=== PATIENT | female | born 1970 | race Caucasian/White ===

== ENCOUNTER 2020-08-02 10:57 | Observation (INO) ==
[~2020-08-02 10:57] MED LIST: ATIVAN INJ 2 MG VIAL IVP ONE; ATIVAN INJ 2 MG VIAL ONE; NS 1000 ML 1,000 ML ONE
--- NOTE | 2020-08-02 11:13 | DR.GENAD ---
HPI Time Seen Time Seen by Provider: 08/02/20 11:09 ROS Review of Systems Constitutional: Weakness Eyes: No Symptoms Reported ENTM: No Symptoms Reported Respiratoy: Short of Breath Cardiovascular: Palpitations Gastrointestinal/Abdominal: No Symptoms Reported Genitourinary: No Symptoms Reported Neurological: Emotional Problems Musculoskeletal: No Symptoms Reported Integumentary: No Symptoms Reported Hematologic/Lymphatic: No Symptoms Reported Endocrine: No Symptoms Reported Psychiatric: Anxiety and Other (panic attack) All Other Systems: Reviewed and Negative PE Vital Signs Vitals: Temperature 97.4 F Pulse Rate [Apical] 59 Pulse Rate 55 Respiratory Rate 24 Blood Pressure [Right Arm] 121/68 Blood Pressure 94/61 O2 Sat by Pulse Oximetry 99 General Limitations: No Limitations and Other (pt having a panic attack) General Appearance: Alert and Anxious Head Head Exam: Normal Inspection, Atraumatic and Normocephalic Eyes Eye exam: Normal Appearance, PERRL and EOMI ENT ENT Exam: Normal Exam, Normal Oropharynx and Mucous Membranes Moist Mouth Exam: Normal Inspection; negative Drooling, Trismus, Lip Swelling, Tongue Elevation and Tongue Swelling Throat Exam: Normal Inspection; negative Tonsillar Erythema, Tonsillomegaly, Tonsillar Exudate and R Peritonsillar Mass Neck Neck Exam: Normal Inspection, Full ROM and Trachea Midline; negative Tenderness, Meningismus and Lymphadenopathy Chest Chest Inspection: Normal Inspection and Symmetric Chest Wall Rise; negative Tenderness Respiratory Respiratory Exam: Normal Lung Sounds Bilat; negative Accessory Muscle Use and Chest Wall Tenderness Respiratory Exam: Bilateral: Clear to Auscultation Cardiovascular Cardiovascular Exam: Regular Rate, Normal Rhythm and Other (frquent added beats bigeminy ) Abdominal Exam Abdominal Exam: Normal Inspection, Normal Bowel Sounds and Soft Extremities Extremities Exam: Normal Inspection and Full ROM; negative Tenderness, Edema and Joint Swelling Back Back Exam: Normal Inspection and Full ROM; negative Tenderness Neurologic Neurological Exam: Alert, Oriented X3 and Normal Gait; negative Motor Sensory Deficit Psychiatric Psychiatric Exam: Other (pt in panic attack upon admission after 2mg of Ativan IV asymptomatic and calm ) Skin Skin Exam: Warm, Dry, Intact and Normal Color MDM Differential Diagnosis Differential Diagnosis: panic attack resp failure upper resp obstruction bradyvcardia Ac NV ROR Labs Reviewed Laboratory Results Reviewed?: Yes Result Diagrams: 08/02/20 10:55 08/02/20 10:55 Laboratory: WBC 7.8 X10^3/uL (3.6-10.0) 12/10/20 10:55 RBC 4.14 X10^6/uL (3.5-5.4) 08/02/20 10:55 Hgb 12.8 g/dL (12.0-16.0) 08/02/20 10:55 Hct 38.6 % (36.0-47.0) 08/02/20 10:55 MCV 93.2 fL (80.0-100.0) 08/02/20 10:55 MCH 30.9 pg (27.0-34.0) 08/02/20 10:55 MCHC 33.1 g/dL (33.0-35.0) 08/02/20 10:55 RDW 14.0 % (11.6-16.5) 08/02/20 10:55 Plt Count 256 X10^3/uL (150.0-450.0) 08/02/20 10:55 MPV 7.7 fL (7.4-11.0) 08/02/20 10:55 Neut % (Auto) 63.9 % (42.0-75.0) 08/02/20 10:55 Lymph % (Auto) 23.4 % (21.0-51.0) 08/02/20 10:55 [place] % (Auto) 10.9 % (0.0-13.0) 08/02/20 10:55 Eos % (Auto) 1.4 % (0.9-2.9) 08/02/20 10:55 Baso % (Auto) 0.4 % (0.2-1.0) 08/02/20 10:55 Neut # (Auto) 5.0 x10^3/uL (2.2-4.8) H 08/02/20 10:55 Lymph # (Auto) 1.8 X10^3/uL (1.3-2.9) 08/02/20 10:55 [place] # (Auto) 0.8 x10^3/uL (0.3-0.8) 08/02/20 10:55 Eos # (Auto) 0.1 x10^3/uL (0.0-0.2) 08/02/20 10:55 Baso # (Auto) 0.0 X10^3/uL (0.0-0.1) 08/02/20 10:55 Absolute Nucleated RBC 0.0 /100WBC 08/02/20 10:55 PT 12.5 SECONDS (11.8-14.3) 08/02/20 10:55 INR Target Range - 08/02/20 10:55 INR 0.96 (0.8-1.3) 08/02/20 10:55 APTT 27.9 SECONDS (22.9-36.5) 08/02/20 10:55 PTT Comment - 08/02/20 10:55 Sodium 142 mmol/L (136-145) 08/02/20 10:55 Corrected Sodium TNP 08/02/20 10:55 Potassium 4.0 mmol/L (3.5-5.1) 08/02/20 10:55 Chloride 106 mmol/L (98-107) 08/02/20 10:55 Carbon Dioxide 25.3 mmol/L (21-32) 08/02/20 10:55 BUN 15 mg/dL (7-18) 08/02/20 10:55 Creatinine 0.68 mg/dL (0.55-1.02) 08/02/20 10:55 Est GFR (MDRD) Af Amer > 60 (>60) 08/02/20 10:55 Est GFR (MDRD) Non-Af > 60 (>60) 08/02/20 10:55 Glucose 92 mg/dL (65-99) 08/02/20 10:55 Calcium 9.6 mg/dL (8.5-10.1) 08/02/20 10:55 Corrected Calcium TNP 08/02/20 10:55 Magnesium 1.9 mg/dL (1.7-2.9) 08/02/20 10:55 Total Bilirubin 0.20 mg/dL (0.2-1.0) 08/02/20 10:55 AST 19 Units/L (15-37) 08/02/20 10:55 ALT 20 Units/L (12-78) 08/02/20 10:55 Alkaline Phosphatase 23 Units/L (46-116) L 08/02/20 10:55 Creatine Kinase 100 Units/L (26-192) 08/02/20 10:55 CK-MB (CK-2) < 1.0 ng/mL (0-4.0) 08/02/20 10:55 CK/CKMB % Calc 1.0 % (<4) 08/02/20 10:55 Troponin I < 0.02 ng/mL (0-1.5) 08/02/20 10:55 Total Protein 7.1 g/dL (6.4-8.2) 08/02/20 10:55 Albumin 4.0 g/dL (3.4-5.0) 08/02/20 10:55 Globulin 3.1 g/dL (2.5-4.5) 08/02/20 10:55 Albumin/Globulin Ratio 1.3 Ratio (1.1-2.1) 08/02/20 10:55 SARS CoV-2 RNA Rapid ANTOLIN Negative (NEGATIVE) 08/02/20 11:03 XRAY XRAY Interpreted by: Radiologist X-ray Results: NAD EKG Rate: 75 [place]: LAD Rhythm: PVCs (Bigeminy) Block: None Hypertrophy: LVH ST: Normal Opioid Opioid Risk Tool Total: 0 Total Score Risk Category: Low Risk Copyright: Nilo BACA predicting aberrant behaviors Diagnosis Discharge Problem: Bradycardia, Ventricular bigeminy
[2020-08-02] MEDS ORDERED: NITROSTAT SL PRN (11:17)
[2020-08-02] MEDS ORDERED: ASPIRIN PO ONE (11:17)
[2020-08-02 11:34] LABS: BASOPHILS % (AUTO) 0.4 % (0.2-1.0); EOSINOPHILS # (AUTO) 0.1 x10^3/uL (0.0-0.2); EOSINOPHILS % (AUTO) 1.4 % (0.9-2.9); HEMATOCRIT 38.6 % (36.0-47.0); HEMOGLOBIN 12.8 g/dL (12.0-16.0); LYMPHOCYTES # (AUTO) 1.8 X10^3/uL (1.3-2.9); LYMPHOCYTES % (AUTO) 23.4 % (21.0-51.0); MEAN CORPUSCULAR HEMOGLOBIN 30.9 pg (27.0-34.0); MEAN CORPUSCULAR HGB CONC 33.1 g/dL (33.0-35.0); MEAN CORPUSCULAR VOLUME 93.2 fL (80.0-100.0); MEAN PLATELET VOLUME 7.7 fL (7.4-11.0); MONOCYTES # (AUTO) 0.8 x10^3/uL (0.3-0.8); MONOCYTES % (AUTO) 10.9 % (0.0-13.0); NEUTROPHILS % (AUTO) 63.9 % (42.0-75.0); PLATELET COUNT 256 X10^3/uL (150.0-450.0); RED BLOOD COUNT 4.14 X10^6/uL (3.5-5.4); WHITE BLOOD COUNT 7.8 X10^3/uL (3.6-10.0)
--- NOTE | 2020-08-02 11:47 | RAD ---
HISTORYCHEST PAINSTUDYCHEST, 1 VIEWCOMPARISONNoneFINDINGSThe trachea is midline. The cardiac silhouette is unremarkable . The lungs are clear without focal infiltrate or effusion. The bony thorax is unremarkable.IMPRESSIONNo acute cardiopulmonary disease.Electronically signed by: ALLY PAGAN (Aug 02, 2020 11:45:42)
[2020-08-02 11:48] LABS: ALANINE AMINOTRANSFERASE 20 Units/L (12-78); ALKALINE PHOSPHATASE 23 Units/L (46-116); ASPARTATE AMINO TRANSFERASE 19 Units/L (15-37); BLOOD UREA NITROGEN 15 mg/dL (7-18); CALCIUM 9.6 mg/dL (8.5-10.1); CHLORIDE 106 mmol/L (98-107); CREATINE KINASE 100 Units/L (26-192); CREATINE KINASE MB < 1.0 ng/mL (0-4.0); CREATININE 0.68 mg/dL (0.55-1.02); MAGNESIUM 1.9 mg/dL (1.7-2.9); SODIUM 142 mmol/L (136-145); TOTAL PROTEIN 7.1 g/dL (6.4-8.2); TROPONIN I < 0.02 ng/mL (0-1.5); eGFR NON BLACK RACES > 60 (>60)
[2020-08-02 11:53] LABS: CARBON DIOXIDE 25.3 mmol/L (21-32)
[2020-08-02] MEDS ORDERED: NS 1000 ML 1,000 ML IV SCH ×3 (11:53→13:00)
[2020-08-02 15:39] VITALS: BMI 24.5
[2020-08-02 17:52] LABS: BILIRUBIN,URINE NEGATIVE (NEGATIVE); BLOOD/HEMOGLOBIN,URINE NEGATIVE (NEGATIVE); GLUCOSE, URINE NEGATIVE (NEGATIVE); KETONES,URINE NEGATIVE (NEGATIVE); LEUKOCYTE ESTERASE ,URINE NEGATIVE (NEGATIVE); NITRITES,URINE NEGATIVE (NEGATIVE); PH,URINE 6.5 (5.0 - 8.0); PROTEIN,URINE NEGATIVE (NEGATIVE); UROBILINOGEN,URINE NORMAL (NORMAL)
[2020-08-02 18:02] LABS: APPEARANCE,URINE CLEAR (CLEAR); COLOR,URINE YELLOW (YELLOW)
[2020-08-02 18:05] LABS: CKMB % 1.3 % (<4); CREATINE KINASE 79 Units/L (26-192); CREATINE KINASE MB < 1.0 ng/mL (0-4.0); TROPONIN I < 0.02 ng/mL (0-1.5)
[2020-08-02 23:53] LABS: CKMB % 1.4 % (<4); CREATINE KINASE 70 Units/L (26-192); CREATINE KINASE MB < 1.0 ng/mL (0-4.0); TROPONIN I < 0.02 ng/mL (0-1.5)
[2020-08-03 06:07] LABS: BASOPHILS % (AUTO) 0.5 % (0.2-1.0); EOSINOPHILS # (AUTO) 0.2 x10^3/uL (0.0-0.2); EOSINOPHILS % (AUTO) 3.4 % (0.9-2.9); HEMATOCRIT 35.1 % (36.0-47.0); HEMOGLOBIN 11.8 g/dL (12.0-16.0); LYMPHOCYTES # (AUTO) 1.4 X10^3/uL (1.3-2.9); LYMPHOCYTES % (AUTO) 24.9 % (21.0-51.0); MEAN CORPUSCULAR HEMOGLOBIN 31.4 pg (27.0-34.0); MEAN CORPUSCULAR HGB CONC 33.7 g/dL (33.0-35.0); MEAN CORPUSCULAR VOLUME 93.2 fL (80.0-100.0); MEAN PLATELET VOLUME 7.6 fL (7.4-11.0); MONOCYTES # (AUTO) 0.9 x10^3/uL (0.3-0.8); MONOCYTES % (AUTO) 15.5 % (0.0-13.0); NEUTROPHILS # (AUTO) 3.2 x10^3/uL (2.2-4.8); NEUTROPHILS % (AUTO) 55.7 % (42.0-75.0); PLATELET COUNT 217 X10^3/uL (150.0-450.0); RED BLOOD COUNT 3.77 X10^6/uL (3.5-5.4); RED CELL DISTRIBUTION WIDTH 14.1 % (11.6-16.5); WHITE BLOOD COUNT 5.8 X10^3/uL (3.6-10.0)
[2020-08-03 06:25] LABS: ALANINE AMINOTRANSFERASE 13 Units/L (12-78); ALBUMIN 3.3 g/dL (3.4-5.0); ALKALINE PHOSPHATASE 26 Units/L (46-116); ASPARTATE AMINO TRANSFERASE 12 Units/L (15-37); BLOOD UREA NITROGEN 20 mg/dL (7-18); CALCIUM 9.1 mg/dL (8.5-10.1); CARBON DIOXIDE 23.7 mmol/L (21-32); CHLORIDE 105 mmol/L (98-107); CHOL/HDL RATIO 3.3 (0.0-5.0); CHOLESTEROL 179 mg/dL (0-200); COR CA(FOR HYPOALB) 9.7 mg/dL (8.5-10.1); COR NA(FOR HYPERGLY) 137 mmol/L (136-145); CREATININE 0.73 mg/dL (0.55-1.02); HDL CHOLESTEROL 54 mg/dL (40-60); SODIUM 137 mmol/L (136-145); TOTAL PROTEIN 6.1 g/dL (6.4-8.2); TRIGLYCERIDES 131 mg/dL (0-150); eGFR NON BLACK RACES > 60 (>60)
--- NOTE | 2020-08-03 08:16 | DR.H&P ---
H&P - History & Physical for Day of: H&P Date: 08/02/20 - Chief Complaint Chief Complaint: syncope, chest pain - History of Present Illness History of Present Illness: Patient is a 50 year old female that is a direct admit per Dr. Jimenez's office secondary to symptomatic bradycardia, syncope and chest pain. Patient reported that she had felt off for a couple of days but started feeling really bad this AM. States that she saw Dr. Olmos and is scheduled for a heart cath on the due to questionable blockage. Patient reports that she has been unsteady on her feet and states. Family member reports that she passed out at work this morning. Patient will be admitted for further evaluation and possible transfer to [facility] under the care of Dr. Olmos. - Past Medical History Past Medical History: Anxiety - Past Surgical History Surgical History: Hysterectomy - Family History Family Medical History: Cancer - Social History Does patient currently use any type of tobacco product: Yes Have you used tobacco products in the last 12 months: Yes Type of Tobacco Use: Cigarettes Does any household member use tobacco: No Alcohol Use: None - Medications Home Medications: No Known Drug Allergies Allergy (Verified 08/02/20 11:11) CONTINUE taking the following medications [id number] [Breztri Aerosphere] 1 inh INHALATION BID 08/02/20 [History] citalopram 40 mg PO HS 08/02/20 [History] estradiol 2 mg PO DAILY 08/02/20 [History] - Review of Systems Constitutional: See HPI Eyes: See HPI ENT: See HPI Respiratory: See HPI Cardiovascular: Chest Pain, See HPI Gastrointestinal: See HPI, Nausea Genitourinary: See HPI Musculoskeletal: See HPI Skin: See HPI - Physical Exam Vital Signs: Temperature 98.5 F Pulse Rate [Right Brachial] 57 Pulse Rate [Apical] 69 Pulse Rate 55 Respiratory Rate 20 Blood Pressure [Right Arm] 102/57 Blood Pressure 94/61 O2 Sat by Pulse Oximetry 98 Oriented: Normal Eyes: Normal Ear: Normal Nose: Normal Throat: Normal Respiratory: Clear Throughout Cardiovascular: Bradycardia : Normal Auscultation: Bowel Sounds: Normal Palpation: Normal Tenderness: Normal Skin: Normal Musculoskeletal: Normal Psychiatric: Anxiety Mood Description: Calm Speech Pattern: Clear - Assessment/Plan (1) Chest pain Status: Acute Plan: EKG, Troponin, Plan for transfer for cardiology (2) Syncope Status: Acute Plan: cardio eval. telemetry. cbc. cmp, ua (3) Bradycardia Status: Acute Plan: cardio eval. ekg. telemetry (4) Ventricular bigeminy Status: Acute Plan: ekg. telemetry - Allergies Allergies/Adverse Reactions: Allergies Allergy/AdvReac Type Severity Reaction Status Date / Time No Known Drug Allergies Allergy Verified 08/02/20 11:11
[2020-08-04 06:16] LABS: BASOPHILS % (AUTO) 0.7 % (0.2-1.0); EOSINOPHILS # (AUTO) 0.2 x10^3/uL (0.0-0.2); EOSINOPHILS % (AUTO) 3.3 % (0.9-2.9); HEMATOCRIT 36.4 % (36.0-47.0); HEMOGLOBIN 11.9 g/dL (12.0-16.0); LYMPHOCYTES # (AUTO) 1.5 X10^3/uL (1.3-2.9); LYMPHOCYTES % (AUTO) 24.1 % (21.0-51.0); MEAN CORPUSCULAR HGB CONC 32.8 g/dL (33.0-35.0); MEAN CORPUSCULAR VOLUME 94.4 fL (80.0-100.0); MEAN PLATELET VOLUME 7.6 fL (7.4-11.0); MONOCYTES # (AUTO) 0.8 x10^3/uL (0.3-0.8); MONOCYTES % (AUTO) 13.4 % (0.0-13.0); NEUTROPHILS # (AUTO) 3.5 x10^3/uL (2.2-4.8); NEUTROPHILS % (AUTO) 58.5 % (42.0-75.0); PLATELET COUNT 218 X10^3/uL (150.0-450.0); RED BLOOD COUNT 3.85 X10^6/uL (3.5-5.4); RED CELL DISTRIBUTION WIDTH 14.2 % (11.6-16.5); WHITE BLOOD COUNT 6.1 X10^3/uL (3.6-10.0)
[2020-08-04 06:31] LABS: ALANINE AMINOTRANSFERASE 18 Units/L (12-78); ALBUMIN 3.2 g/dL (3.4-5.0); ALKALINE PHOSPHATASE 24 Units/L (46-116); ASPARTATE AMINO TRANSFERASE 14 Units/L (15-37); BLOOD UREA NITROGEN 19 mg/dL (7-18); CALCIUM 8.8 mg/dL (8.5-10.1); CARBON DIOXIDE 24.3 mmol/L (21-32); CHLORIDE 104 mmol/L (98-107); COR CA(FOR HYPOALB) 9.4 mg/dL (8.5-10.1); COR NA(FOR HYPERGLY) 137 mmol/L (136-145); CREATININE 0.69 mg/dL (0.55-1.02); SODIUM 137 mmol/L (136-145); TOTAL PROTEIN 5.9 g/dL (6.4-8.2); eGFR NON BLACK RACES > 60 (>60)
[2020-08-04 08:20] VITALS: BP 102/57
== END 2020-08-04 09:30 | disposition short-term general hospital (02) ==
LOC: MED/SURG 10:57 → ER 10:57 → EDBD 11:57 → MED/SURG 12:16
PROVIDERS: ADMIT Internal Medicine; ATTEND Internal Medicine